=== PATIENT | female | born 1950 | race Caucasian/White ===

== ENCOUNTER 2017-08-03 06:43 | Emergency (ER) | payer OTHER ==
[2017-08-03] MEDS: ORPHENADRINE INJ 60 MG/2 ML AMP IM (07:44)
[2017-08-03] MEDS: oxyCODONE/ACETAMINOPHEN 5 MG/325 MG TAB PO (07:44)
== END 2017-08-03 08:59 | disposition home or self-care (01) ==
LOC: NEPD 06:43
DX: M16.11 Unilateral primary osteoarthritis, right hip (principal); G89.29 Other chronic pain; M54.5 Low back pain; G62.9 Polyneuropathy, unspecified
CPT/HCPCS: 73502; 96372; 99284-25

== ENCOUNTER 2017-08-17 19:40 | Emergency (ER) | payer OTHER ==
[~2017-08-17] VITALS: Ht 170.2 cm; Wt 77.0 kg
[~2017-08-17 19:40] MED LIST: ATOR80TA PO; GABA800T PO; MEDR4PAK PO; NAPR220T95 PO; OMEP20.62 PO; PERC5TAB12 PO; RANI300T PO
[2017-08-17 20:17] VITALS: BP 153/72; PULSE 90; RESP 20; TEMP 99.2; O2SAT 97
[2017-08-17] MEDS ORDERED: SODIUM CHLOR 0.9% 1000 ML INJ 1,000 ML IV SCH (22:03)
--- NOTE | 2017-08-17 22:06 | PD ---
HPI Chief Complaint: GI Complaint Time Seen by Provider: 21:56 Travel History International Travel<30 days: No Contact w/Intl Traveler<30days: No Traveled to known affect area: No History of Present Illness HPI The patient is a 66-year-old female that has been vomiting for 1 day. Shows a complains of hip pain on the right for a month but this is not why she came in tonight. She she came in because of the vomiting. She has had her gallbladder out 20 years ago. She has had no other abdominal surgeries and still has her appendix. The pain is dull and a 1-2/10. She denies any fever. She denies any diarrhea. She does feel dehydrated. PFSH Past Medical History Hx Anticoagulant Therapy: No Arthritis: Yes Cancer: Yes (RT BREAST) Cardiovascular Problems: Yes Chemotherapy: No Cerebrovascular Accident: No Diabetes: No Diminished Hearing: No GERD: Yes Musculoskeletal: Yes (CHRONIC RIGHT HIP PAIN ) Neurologic: Yes (BILATERAL LEG NEUROPATHY) Respiratory: No Menopausal: Yes Past Surgical History Cholecystectomy: Yes Hysterectomy: No Tonsillectomy: Yes Other Surgery: Yes (RIGHT AXILLARY LUMPECTOMY, carotid endarterectomy) Social History Alcohol Use: No Tobacco Use: No Substance Use: No Allergies-Medications (Allergen,Severity, Reaction): Coded Allergies: codeine (Unverified Adverse Reaction, Intermediate, SICK TO STOMACH, ) Reported Meds & Prescriptions Reported Meds & Active Scripts Active Medrol Dosepak (Methylprednisolone) 4 Mg Dspk 4 Mg PO DIRECTED Per Pharmacist direction Percocet (Oxycodone-Acetaminophen) 5-325 mg Tab 1 Tab PO Q4H PRN Reported Aleve (Naproxen Sodium) 220 Mg Tab 220 Mg PO BID PRN Gabapentin 800 Mg Tab 800 Mg PO TID Omeprazole Magnesium 20.[address] CAP (Omeprazole Magnesium) 20.6 Mgdr Cap 1 Cap PO DAILY Atorvastatin 80 mg (Atorvastatin Calcium) 80 Mg Tab 80 Mg PO HS Ranitidine 300 mg (Ranitidine HCl) 300 Mg Tab 1 Tab PO DAILY Review of Systems Except as stated in HPI: all other systems reviewed are Neg Physical Exam Narrative GENERAL: The patient is alert, oriented 3, moderately dehydrated appearing in minimal distress with her abdominal discomfort. Her vital signs show blood pressure 153/72 but otherwise normal. SKIN: Focused skin assessment warm/dry. HEAD: Atraumatic. Normocephalic. EYES: Pupils equal and round. No scleral icterus. No injection or drainage. ENT: No nasal bleeding or discharge. Mucous membranes pink and moist. NECK: Trachea midline. No JVD. CARDIOVASCULAR: Regular rate and rhythm. No murmur appreciated. RESPIRATORY: No accessory muscle use. Clear to auscultation. Breath sounds equal bilaterally. GASTROINTESTINAL: Abdomen soft, with tenderness to direct palpation in the bilateral lower quadrants and left upper quadrant, nondistended. Hepatic and splenic margins not palpable. No guarding or rebound is present. MUSCULOSKELETAL: No obvious deformities. No clubbing. No cyanosis. No edema. NEUROLOGICAL: Awake and alert. No obvious cranial nerve deficits. Motor grossly within normal limits. Normal speech. PSYCHIATRIC: Appropriate mood and affect; insight and judgment normal. Data Data Last Documented VS Vital Signs Date Time Temp Pulse Resp B/P (MAP) Pulse Ox O2 Delivery O2 Flow Rate FiO2 08/17/17 23:22 16 96 Room Air 08/17/17 20:17 99.2 90 153/72 (99) Orders Orders Complete Blood Count With Diff (08/17/17 22:03) Comprehensive Metabolic Panel (08/17/17 22:03) Lipase (08/17/17 22:03) Urinalysis - C+S If Indicated (08/17/17 22:03) Iv Access Insert/Monitor (08/17/17 22:03) Ecg Monitoring (08/17/17 22:03) Oximetry (08/17/17 22:03) Ondansetron Inj (Zofran Inj) (08/17/17 22:15) Sodium Chlor 0.9% 1000 Ml Inj (Ns 1000 M (08/17/17 22:03) Sodium Chloride 0.9% Flush (Ns Flush) (08/17/17 22:15) Influenzae A/B Antigen (08/17/17 22:07) Urine Culture (08/17/17 23:05) Labs Laboratory Tests Test 08/17/17 23:05 White Blood Count 10.5 TH/MM3 Red Blood Count 4.48 MIL/MM3 Hemoglobin 13.3 GM/DL Hematocrit 40.4 % Mean Corpuscular Volume 90.3 FL Mean Corpuscular Hemoglobin 29.7 PG Mean Corpuscular Hemoglobin Concent 32.9 % Red Cell Distribution Width 13.1 % Platelet Count 398 TH/MM3 Mean Platelet Volume 7.7 FL Neutrophils (%) (Auto) 70.1 % Lymphocytes (%) (Auto) 20.4 % Monocytes (%) (Auto) 7.5 % Eosinophils (%) (Auto) 1.2 % Basophils (%) (Auto) 0.8 % Neutrophils # (Auto) 7.4 TH/MM3 Lymphocytes # (Auto) 2.1 TH/MM3 Monocytes # (Auto) 0.8 TH/MM3 Eosinophils # (Auto) 0.1 TH/MM3 Basophils # (Auto) 0.1 TH/MM3 CBC Comment DIFF FINAL Differential Comment Urine Color YELLOW Urine Turbidity CLEAR Urine pH 5.0 Urine Specific [place] 1.015 Urine Protein NEG mg/dL Urine Glucose (UA) NEG mg/dL Urine Ketones TRACE mg/dL Urine Occult Blood NEG Urine Nitrite NEG Urine Bilirubin NEG Urine Leukocyte Esterase SMALL Urine RBC 0-2 /hpf Urine WBC 9-14 /hpf Urine Squamous Epithelial Cells 0-5 /hpf Urine Bacteria FEW /hpf Microscopic Urinalysis Comment CULTURE INDICATED Blood Urea Nitrogen 14 MG/DL Creatinine 0.91 MG/DL Random Glucose 97 MG/DL Total Protein 8.1 GM/DL Albumin 3.9 GM/DL Calcium Level 9.6 MG/DL Alkaline Phosphatase 133 U/L Aspartate Amino Transf (AST/SGOT) 22 U/L Alanine Aminotransferase (ALT/SGPT) 18 U/L Total Bilirubin 0.5 MG/DL Sodium Level 134 MEQ/L Potassium Level 3.9 MEQ/L Chloride Level 99 MEQ/L Carbon Dioxide Level 27.6 MEQ/L Anion Gap 7 MEQ/L Estimat Glomerular Filtration Rate 62 ML/MIN Lipase 188 U/L MDM Medical Decision Making Medical Screen Exam Complete: Yes Emergency Medical Condition: Yes Medical Record Reviewed: Yes Interpretation(s) The complete metabolic profile shows a GFR 62, alkaline phosphatase of 133 sodium 134 but is otherwise normal. The lipase is normal. The urine shows trace ketones, small leukocyte esterase, 9-14 white cells and few bacteria and culture is indicated. The CBC is normal. Differential Diagnosis Pyelonephritis, flu syndrome, nonspecific viral syndrome, viral gastritis, dehydration, electrolyte disorder, pancreatitis Narrative Course The patient likely has pyelonephritis. She is feeling fine now, it is now 12 midnight. She is not nauseated and she is able to take clear liquids easily. She will get a prescription for Zofran 4 mg and Macrobid for 10 days. She needs to follow-up with her primary care physician this week or early next week. Diagnosis Primary Impression: Pyelonephritis Additional Impression: Viral gastritis Additional Instructions: You have a urinary infection. It is important to establish a good urine flow through your kidneys when you have a urine infection. Therefore, you need to drink increased amounts of liquids. The antibiotic is one tablet twice daily for 10 days. The Zofran tablets every 6 hours as needed for nausea. Med/Other Pt SpecificInfo: Prescription(s) given Scripts Ondansetron (Zofran) 4 Mg Tab 4 MG PO Q6HR Y for NAUSEA OR VOMITING, #28 TAB 0 Refills Prov: Nick Staley MD 08/18/17 Nitrofurantoin Monohydrate Macrocrystals (Macrobid) 100 Mg Capsule 100 MG PO BID for Infection for 10 Days, #20 CAP 0 Refills Prov: Nick Staley MD 08/18/17 Disposition: 01 DISCHARGE HOME Condition: Stable Nick Staley MD Aug 17, 2017 22:06
[2017-08-17] MEDS ORDERED: ONDANSETRON HCL 4 MG/2 ML VIAL IVP ONE (22:15)
[2017-08-17] MEDS ORDERED: SODIUM CHLORIDE 0.9% FLUSH 10 ML FLUSH IV FLUSH PRN (22:15)
[2017-08-17 23:16] LABS: BILIRUBIN, URINE NEG (NEG); BLOOD, URINE NEG (NEG); GLUCOSE,URINE NEG (NEG); KETONE, URINE TRACE mg/dL (NEG); NITRITE,URINE NEG (NEG); URINE LEUKOCYTE ESTERASE SMALL (NEG)
[2017-08-17 23:17] LABS: AUTOMATED NEUTROPHIL # 7.4 TH/MM3 (1.8-7.7); BASOPHIL # 0.1 TH/MM3 (0-0.2); BASOPHIL % 0.8 % (0.0-2.0); EOSINOPHIL # 0.1 TH/MM3 (0-0.4); EOSINOPHIL % 1.2 % (0.0-4.0); HEMATOCRIT 40.4 % (35.0-46.0); HEMOGLOBIN 13.3 GM/DL (11.6-15.3); LYMPH % 20.4 % (9.0-44.0); LYMPHOCYTE # 2.1 TH/MM3 (1.0-4.8); MEAN CELL VOLUME 90.3 FL (80.0-100.0); MEAN CORPUSCULAR HEMOGLOBIN 29.7 PG (27.0-34.0); MEAN CORPUSCULAR HGB CONC 32.9 % (32.0-36.0); MEAN PLATELET VOLUME 7.7 FL (7.0-11.0); MONO % 7.5 % (0.0-8.0); MONOCYTE # 0.8 TH/MM3 (0-0.9); NEUT % 70.1 % (16.0-70.0); PLATELET COUNT 398 TH/MM3 (150-450); RED BLOOD COUNT 4.48 MIL/MM3 (4.00-5.30); RED CELL DISTRIBUTION WIDTH 13.1 % (11.6-17.2); WHITE BLOOD COUNT 10.5 TH/MM3 (4.0-11.0)
[2017-08-17 23:22] VITALS: RESP 16; O2SAT 96
[2017-08-17 23:23] LABS: CHLORIDE 99 MEQ/L (98-107); SODIUM (NA) 134 MEQ/L (136-145)
[2017-08-17 23:26] LABS: BACTERIA, URINE FEW /hpf; RBC, URINE 0-2 /hpf (0-3); SQUAMOUS EPITHELIAL CELL URINE 0-5 /hpf (0-5); URINE COLOR YELLOW (YELLW/STRAW)
[2017-08-17 23:27] LABS: ALBUMIN 3.9 GM/DL (3.4-5.0); BICARBONATE 27.6 MEQ/L (21.0-32.0); CALCIUM 9.6 MG/DL (8.5-10.1); GLUCOSE,RANDOM 97 MG/DL (74-106)
[2017-08-17 23:28] LABS: BLOOD UREA NITROGEN 14 MG/DL (7-18)
[2017-08-17 23:30] LABS: ALT (GPT) 18 U/L (10-53); AST (GOT) 22 U/L (15-37); CREATININE 0.91 MG/DL (0.50-1.00); GLOMERULAR FILTRATION RATE 62 ML/MIN (>89)
[2017-08-17 23:32] LABS: TOTAL BILIRUBIN ADULT 0.5 MG/DL (0.2-1.0); TOTAL PROTEIN 8.1 GM/DL (6.4-8.2)
[2017-08-17 23:33] LABS: ALKALINE PHOSPHATASE 133 U/L (45-117)
[2017-08-18 00:04] VITALS: BP 124/50; PULSE 81; RESP 16; O2SAT 96
[2017-08-18] MEDS ORDERED: ZOFR4TAB PO (00:12)
[2017-08-18] MEDS ORDERED: MACR100C2 PO (00:12)
[2017-08-18] MEDS ORDERED: NITROFURANTOIN MONOHYD MACROCR 100 MG CAP PO ONE (00:15)
== END 2017-08-18 00:39 | disposition home or self-care (01) ==
LOC: PHED 19:40
DX: N12 Tubulo-interstitial nephritis, not specified as acute or chronic (principal); A08.4 Viral intestinal infection, unspecified; M25.551 Pain in right hip; G89.29 Other chronic pain
CPT/HCPCS: 80053; 81001; 83690; 85025; 87086; 87804; 96361; 96374; 99284; J2405; J7030